=== PATIENT | male | born 1995 | race Caucasian/White ===

== ENCOUNTER 2024-01-28 08:43 | Emergency (ER) | payer BC, SELFPAY ==
[2024-01-28 09:04] VITALS: BP 130/71; PULSE 74; RESP 18; TEMP 36.4; O2SAT 100
--- NOTE | 2024-01-28 09:09 | ED.WOUNDLAC ---
HPI - Wound/Laceration General Chief Complaint: Wound/Laceration Stated Complaint: pain in left shoulder region Time Seen by Provider: 01/28/24 09:09 Source: patient, RN notes reviewed and old records reviewed Mode of arrival: ambulatory Limitations: no limitations History of Present Illness HPI narrative: Patient presents with complaint of abscess to left anterior shoulder near the axilla. He reports he has had this in the past, took antibiotics and it resolved. States that he has been taking doxycycline for 4 days, and the site is getting worse. He reports no history of I and D. he denies any fever, chills, sweats. He reports that pain has gotten so bad that he is having difficulty moving the shoulder freely. Denies any injury or trauma. Voices no other concerns or complaints today. Related Data Home Medications Medication Instructions Recorded Confirmed doxycycline hyclate 100 mg capsule 100 mg PO BID 01/28/24 01/28/24 Allergies Allergy/AdvReac Type Severity Reaction Status Date / Time No Known Allergies Allergy Verified 01/28/24 09:05 Review of Systems Review of Systems: All systems reviewed & are unremarkable except as noted in HPI and below Constitutional: Constitutional: Reports no additional constitutional complaints ENT: Reports system reviewed and no additional complaints, except as documented Cardiovascular: Cardiovascular: Reports no additional cardiovascular complaints Respiratory: Respiratory: Reports no additional respiratory complaints Gastrointestinal: Gastrointestinal: Reports no additional gastrointestinal complaints Integumentary/Breasts: Comments: large abscess to left shoulder Exam Const: General: cooperative, no acute distress, alert and awake Orientation/consciousness: oriented to person, oriented to place and oriented to time HENMT: Head: normal to inspection Resp: Effort & Inspection: normal respiratory effort and able to speak in complete sentences Auscultation: clear to auscultation bilaterally, no crackles, no rales, no rhonchi and no wheezes Cardio: Palpation: normal PMI Rate: regular rate Rhythm: regular rhythm Heart sounds: S1 normal heart sound present and S2 normal heart sound present Skin: General skin exam: fluctuance and induration Full body images: 1. 4x 6 cm abscess Neuro: General: oriented to person, oriented to place and oriented to time Cranial nerves: Yes CN's II-XII intact bilaterally Psych: Appearance: grossly normal Thought process: Normal thought process present Insight: Good insight present (Psych) Judgement: Good judgement present (Psych) Course Course Level of Care: Express Care Visit Vital Signs Vital signs: Vital Signs Temperature 97.6 F 01/28/24 09:04 Pulse Rate 74 01/28/24 09:04 Respiratory Rate 18 01/28/24 09:04 Blood Pressure 130/71 01/28/24 09:04 Pulse Oximetry 100 01/28/24 09:04 Oxygen Delivery Room Air 01/28/24 09:04 Temperature 97.6 F 01/28/24 09:04 Pulse Rate 74 01/28/24 09:04 Respiratory Rate 18 01/28/24 09:04 Blood Pressure 130/71 01/28/24 09:04 Pulse Oximetry 100 01/28/24 09:04 Oxygen Delivery Room Air 01/28/24 09:04 Procedures Abscess I/D other: Date of Incision: 01/28/24 Time of Incision: 09:18 Side (if applicable): left Local Anesthetic: lidocaine 1% Amount of anesthesia used (mL): 12 Technique: incised with #11 blade Amount of fluid expressed (mL): 30 Irrigation: Yes Packing used?: none I&D Results: Pus and Blood Complications: pain Abcess I&D Additional Comments: difficult to anesthetize the site, patient reports that this is typical for him. He does complain of some pain, but is tolerance of the procedure. Due to insufficient anesthesia, unable to probe loculations or insert packing MDM - Wound/Laceration MDM Narrative Medical decision making narrative: patient has l
[2024-01-28] MEDS: LIDOCAINE HCL 1% LOCAL INJ 2 ML AMPUL 6 ML INFILTRATE ×2 (09:45→09:52)
== END 2024-01-28 10:25 | disposition home or self-care (01) ==
PROVIDERS: Emergency Provider Nurse Practitioner Family; PCP Family Medicine
DX: L02.414 Cutaneous abscess of left upper limb (principal)
CPT/HCPCS: 10060; 87070; 87205; 99203; G0463; J2003